=== PATIENT | female | born 1985 | race Caucasian/White ===

== ENCOUNTER 2024-06-01 13:57 | Emergency (ER) | payer BC, OTHER ==
[~2024-06-01] VITALS: Ht 157.5 cm; Wt 61.2 kg
[2024-06-01] MEDS ORDERED: ONDANSETRON HCL/PF 4 MG/2 ML VIAL ONE ×2 (14:29→14:43)
[2024-06-01] MEDS ORDERED: MAG HYDROX/AL HYDROX/SIMETH 30 ML UDC ONE ×2 (14:29→14:43)
[2024-06-01] MEDS ORDERED: FAMOTIDINE/PF INJ 20 MG/2 ML VIAL IV ONE ×2 (14:30→14:43)
[2024-06-01 14:48] LABS: BASOPHILS % (AUTO) 0.3 % (0.0-2.0); EOSINOPHILS % (AUTO) 0.1 % (0.0-6.0); HEMATOCRIT 40 % (33-45); HEMOGLOBIN 13.8 g/dL (11.5-14.8); LYMPHOCYTES # (AUTO) 0.3 K/uL (0.8-4.8); LYMPHOCYTES % (AUTO) 2.5 % (20.0-44.0); MEAN CORPUSCULAR HEMOGLOBIN 31 PG (26.0-33.0); MEAN CORPUSCULAR HGB CONC 35 g/dl (31.0-36.0); MEAN CORPUSCULAR VOLUME 89 fL (82-100); MONOCYTES # (AUTO) 0.2 K/uL (0.1-1.30); MONOCYTES % (AUTO) 2.4 % (2.0-12.0); NEUTROPHILS % (AUTO) 94.7 % (43.0-81.0); PLATELET COUNT (AUTO) 190 K/uL (150-450); RED CELL DISTRIBUTION WIDTH 12.4 % (11.5-15.0); WHITE BLOOD COUNT (AUTO) 10.5 K/uL (4.3-11.0)
[2024-06-01] MEDS: MAG HYDROX/AL HYDROX/SIMETH 30 ML UDC PO ONE (14:50)
[2024-06-01] MEDS: ONDANSETRON HCL/PF 4 MG/2 ML VIAL IVP ONE (14:50)
[2024-06-01] MEDS: FAMOTIDINE/PF INJ 20 MG/2 ML VIAL IV ONE (14:50)
[2024-06-01] MEDS: IV NS 0.9% 1,000 ML BAG IV ONE (14:50)
[2024-06-01 15:23] LABS: CALCIUM, SERUM 8.6 mg/dL (8.5-10.1); POTASSIUM 3.2 mmol/L (3.5-5.1)
[2024-06-01 15:29] LABS: ALBUMIN 3.7 g/dL (3.4-5.0); BILIRUBIN,DIRECT 0.1 mg/dL (0.0-0.2); BILIRUBIN,TOTAL 0.3 mg/dL (0.2-1.0); TOTAL PROTEIN, SERUM 7.6 g/dL (6.4-8.2)
[2024-06-01] MEDS ORDERED: FAMO20TA80 PO (15:53)
[2024-06-01] MEDS ORDERED: MAG355OR18 PO (15:53)
[2024-06-01] MEDS ORDERED: ONDA4TAB5 PO (15:53)
[2024-06-01] MEDS ORDERED: POTASSIUM CHLORIDE 20 MEQ TAB.PRT.SR PO ONE (16:01)
[2024-06-01] MEDS: POTASSIUM CHLORIDE 20 MEQ TAB.PRT.SR PO ONE (16:09)
[2024-06-01] MEDS ORDERED: ACETAMINOPHEN 650 MG/20.3 ML UDC ONE (16:22)
[2024-06-01] MEDS: ACETAMINOPHEN 325 MG TABLET PO ONE (16:24)
[2024-06-01 16:49] LABS: APPEARANCE,URINE CLEAR (CLEAR); BILIRUBIN,URINE NEGATIVE (NEGATIVE); BLOOD, URINE NEGATIVE Ery/uL (NEGATIVE); COLOR,URINE YELLOW (YELLOW); KETONES,URINE NEGATIVE (NEGATIVE); LEUKOCYTE ESTERASE ,URINE TRACE (NEGATIVE); NITRITE, URINE NEGATIVE (NEGATIVE); PROTEIN,URINE NEGATIVE (NEGATIVE); UGLUCOSE NEGATIVE (NEGATIVE); UROBILINOGEN,URINE 0.2 EU/dL (0.2)
[2024-06-01 17:05] LABS: PREGNANCY TEST URINE QUAL NEGATIVE (NEGATIVE)
[2024-06-01 17:07] LABS: ADD URINE CULTURE NO; BACTERIA,URINE Rare /HPF (None Seen); RBC,URINE 0-2 /HPF (0-2); SQUAMOUS EPITHELIAL CELL,UR Few /HPF (None Seen)
[2024-06-01] MEDS ORDERED: KETOROLAC TROMETHAMINE INJ 30 MG/ML VIAL ONE (17:07)
[2024-06-01] MEDS: KETOROLAC TROMETHAMINE INJ 30 MG/ML VIAL IV ONE (17:20)
[2024-06-01 17:22] VITALS: BP 131/82; TEMP 98.2; O2SAT 98
== END 2024-06-01 17:22 | disposition home or self-care (01) ==
LOC: ER 14:00
DX: R11.2 Nausea with vomiting, unspecified (principal); R10.13 Epigastric pain
CPT/HCPCS: 99284; 96374; 96375; 96361; 85025; 80048; 83690; 80076; 84703; 81001; 36415; J3490; J1885; J2405; J7030

== ENCOUNTER 2024-12-14 13:19 | Emergency (ER) | payer BC, OTHER ==
[~2024-12-14] VITALS: Ht 157.5 cm; Wt 63.5 kg
[~2024-12-14 13:19] MED LIST: FAMO20TA80 PO; MAG355OR18 PO; ONDA4TAB5 PO
[2024-12-14 13:26] VITALS: TEMP 98
[2024-12-14 13:50] LABS: PLATELET COUNT (AUTO) 226 K/uL (150-450); RED BLOOD CELL COUNT(AUTO) 4.40 MIL/uL (4.0-5.2); RED CELL DISTRIBUTION WIDTH 12.8 % (11.5-15.0); WHITE BLOOD COUNT (AUTO) 5.7 K/uL (4.3-11.0)
[2024-12-14 13:56] LABS: CALCIUM, SERUM 9.0 mg/dL (8.5-10.1); CREATININE 0.7 mg/dL (0.6-1.3); SODIUM SERUM 139.0 mmol/L (136-145); UREA NITROGEN, BLOOD 12.0 mg/dL (7-18)
[2024-12-14 14:51] VITALS: BP 116/82; O2SAT 99
== END 2024-12-14 14:36 | disposition home or self-care (01) ==
LOC: ER 13:31
DX: M79.604 Pain in right leg (principal); Z79.899 Other long term (current) drug therapy
CPT/HCPCS: 36415; 80048-TC; 85025-TC; 93971-TC

== ENCOUNTER 2025-01-27 22:49 | Emergency (ER) | payer BC, OTHER ==
[~2025-01-27] VITALS: Ht 157.5 cm; Wt 64.4 kg
[2025-01-28 00:55] LABS: PREGNANCY TEST URINE QUAL POSITIVE (NEGATIVE)
[2025-01-28 00:57] LABS: APPEARANCE,URINE CLEAR (CLEAR); BLOOD, URINE NEGATIVE Ery/uL (NEGATIVE); LEUKOCYTE ESTERASE ,URINE NEGATIVE (NEGATIVE); NITRITE, URINE NEGATIVE (NEGATIVE); UGLUCOSE NEGATIVE (NEGATIVE)
[2025-01-28 01:19] VITALS: BP 130/99; TEMP 98.1; O2SAT 100
== END 2025-01-28 01:20 | disposition home or self-care (01) ==
LOC: ER 22:59
DX: O26.891 Other specified pregnancy related conditions, first trimester (principal); Z71.1 Person with feared health complaint in whom no diagnosis is made; F42.9 Obsessive-compulsive disorder, unspecified; Z3A.01 Less than 8 weeks gestation of pregnancy
CPT/HCPCS: 76856-TC; 84703-TC